=== PATIENT | female | born 1980 | race Caucasian/White ===

== ENCOUNTER 2018-01-03 03:49 | Emergency (ER) | payer OTHER, SELFPAY ==
[2018-01-03 04:05] VITALS: BP 100/50; PULSE 82; RESP 16; TEMP 37.1; O2SAT 98
[2018-01-03 04:28] LABS: Bacteria Urine Many (>30); RBC Urine 30-100/HPF (0-5/HPF); Squamous Epithelial Cell Urine 0-1 /HPF; WBC Urine 30-100/HPF (0-5/HPF)
[2018-01-03 04:29] LABS: Culture Indicated Urine Specimen Cultured
--- NOTE | 2018-01-03 04:56 | ED.FEMALEGU ---
HPI - Female Genitourinary General Chief complaint: Urogenital-Female Stated complaint: Thinks she has a UTI Source: patient and RN notes reviewed Mode of arrival: ambulatory Limitations: no limitations History of Present Illness HPI Narrative: Patient is a 37-year-old female who presents with painful frequent urination. It she says started last evening around 7:00 p.m. is in she woke up this morning around 3:00 a.m with fever and suprapubic pain. No flank pain. She denies any blood in her urine or vaginal discharge. MD Complaint: dysuria and UTI Onset (ago): hour(s) Severity: moderate Related Data Previous Rx's Medication Instructions Recorded sulfamethoxazole-trimethoprim 1 tab PO BID 5 Days #10 tab 01/03/18 [Bactrim DS] Allergies Allergy/AdvReac Type Severity Reaction Status Date / Time No Known Drug Allergies Allergy Verified 01/03/18 04:17 Review of Systems Review of Systems GENERAL: Denies chills,fever HEENT: Denies throat pain RESPIRATORY: Denies dyspnea, cough, wheezing CARDIOVASCULAR: Denies chest pain, palpitations GASTROINTESTINAL: Denies nausea, vomiting MUSCULOSKELETAL: Denies extremity pain, injury SKIN: No rash, no laceration, no pruritus NEUROLOGIC: Denies weakness, dizziness, headache, numbness 8 point review of systems is negative except for those stated above and HPI Genitourinary Reports system reviewed and no additional complaints, except as docu PMFSH Past Medical History Attestation statement: The following information was validated with the patient. Medical history: Reports no medical history Family history: Reports non-contributory Exam Narrative Exam Narrative: GENERAL: Well-appearing, well-nourished and in no acute distress. HEENT: Head atraumatic,EOMI CARDIOVASCULAR: Regular rate and rhythm without murmurs, rubs or gallops. RESPIRATORY: Breath sounds equal bilaterally, no wheezes rales or rhonchi. ABDOMEN: Soft, mild suprapubic tenderness no guarding no rebound : No CVA tenderness EXTREMITIES: Normal range of motion, no clubbing or edema. Neurovascularly intact NEUROLOGICAL: Alert and oriented x4.Normal gait and speech. SKIN: Warm, dry, no laceration, no petechiae, no rashes or lesions. MDM - Female Genitourinary Lab Data Attestation: I reviewed the patient's lab results. Lab Results 01/03/18 Range/Units 04:10 Urine RBC 30-100/hpf H (0-5/HPF) Urine WBC 30-100/hpf H (0-5/HPF) Ur Squamous Epith Cells 0-1 /hpf Urine Bacteria Many (>30) H (None) Ur Culture Indicated? Specimen cultured Micro UA Comment Not Reportable Discharge Plan Departure Patient Disposition: Home, Self-Care Clinical Impression: Urinary tract infection Instructions: DI for Urinary Tract Infection (UTI) Activity Restrictions/Additional Instructions: *You have been diagnosed with bladder infection *What to do: Increase fluid intake, fever control *Take medications as directed -Bactrim 1 tablet twice a day for 5 days -apply radium 1 tablet 3 times a day if needed for burning sensation *Follow up with your primary care provider in 2-3 days *Return to ER if you should have any new, worsening or concerning symptoms Prescriptions: New sulfamethoxazole-trimethoprim [Bactrim DS] 800-160 mg tablet 1 tab PO BID 5 Days Qty: 10 RF: 0 Referrals: [facility] [Outside]
[2018-01-03] MEDS: PHENAZOPYRIDINE 100 MG PREPACK 1 BOTTLE MISC (05:41)
[2018-01-03] MEDS: SULFA/TRIMETH 800/160 PREPACK 1 BOTTLE MISC (05:45)
[2018-01-03 05:57] VITALS: BP 106/50; PULSE 59; RESP 16; O2SAT 97
== END 2018-01-03 05:58 | disposition home or self-care (01) ==
PROVIDERS: Emergency Provider Emergency Medicine
DX: N39.0 Urinary tract infection, site not specified (principal)
CPT/HCPCS: 81003; 81015; 81025; 87086; 99282

== ENCOUNTER 2018-01-07 13:01 | Emergency (ER) | payer OTHER, SELFPAY ==
--- NOTE | 2018-01-07 13:04 | DI.RAD.S_ITS ---
PROCEDURE: XR HAND LT MIN 3V INDICATIONS: injury TECHNIQUE: 3 views of the hand(s) acquired. COMPARISON: None. FINDINGS: Bones: No fractures or dislocations. Carpal bones are normally aligned. No suspicious bony lesions. Soft tissues: No suspicious soft tissue calcifications. IMPRESSION: No acute fractures or dislocations. Dictated by: Robert Smith M.D. on 01/07/2018 at 13:45 Approved by: Robert Smith M.D. on 01/07/2018 at 13:46
--- NOTE | 2018-01-07 13:17 | ED.UPPEXIN ---
HPI - Extremity Injury (Upper) General Chief Complaint: Extremity Injury, Upper Stated Complaint: BROKEN [place]NUCKLE Time Seen by Provider: 01/07/18 13:26 Source: patient History of Present Illness HPI narrative: 37-year-old female here for complaint of pain into her left hand. Patient states that she was lifting up a cushion on a arm chair when she accidentally hit the metal frame of the chair with her left hand. She reports swelling and bruising over her knuckle of the ring finger. She reports increased pain with motion of the fingers. She denies any other injuries or concerns. She states that this happened shortly prior to arrival. Related Data Previous Rx's Medication Instructions Recorded sulfamethoxazole-trimethoprim 1 tab PO BID 5 Days #10 tab 01/03/18 [Bactrim DS] Allergies Allergy/AdvReac Type Severity Reaction Status Date / Time No Known Drug Allergies Allergy Verified 01/07/18 13:05 Review of Systems Constitutional Denies chills, Denies fever(s), Denies lethargy and Denies weakness Eyes Denies change in vision, Denies eye discharge, Denies irritation and Denies loss of vision Gastrointestinal Gastrointestinal: Denies abdominal pain, Denies change in bowel habits, Denies diarrhea, Denies nausea and Denies vomiting Genitourinary Denies hematuria, Denies flank pain, Denies urinary incontinence and Denies urinary urgency Musculoskeletal Comments: Left hand pain Integumentary/Breasts Denies pruritus, Denies erythema, Denies rash and Denies wounds Neurologic Denies loss of vision and Denies weakness [facility] Medical History delivery delivered (Acute) Social History Smoking Status: Never smoker Exam Const General: cooperative and well developed Nutritional Appearance: well nourished Orientation: alert, awake, oriented x3 and not confused Eyes Pupils: PERRL EOM: EOM intact bilaterally Resp Effort & Inspection: normal respiratory effort, able to speak in complete sentences, no respiratory distress and no use of accessory muscles Auscultation: clear to auscultation bilaterally, no rales, no rhonchi and no wheezes Cardio Rate: regular rate Rhythm: regular rhythm Heart Sounds: no click, no gallops, no murmurs and no rubs Skin General: no rashes or lesions noted, No jaundice and No petechiae Extrem Other: Left hand with slight swelling and ecchymosis over the MCP joint of the ring finger. Full range of motion. Distal sensation is intact. Distal cap refill less than 2 sec. MDM - Extremity Injury (Upper) MDM Narrative Medical decision making narrative: X-ray of the left hand was obtained was negative for any acute fractures. Signs and symptoms presents contusion left hand. [id number] Tylenol or Motrin as needed for any discomfort. Ice and elevation to help with any swelling. Follow up with primary care provider. Repeat x-rays and 7-10 days if still having pain due to the left hand to rule out occult fracture. Return emergency room for any worsening symptoms. Discharge Plan Departure Patient Disposition: Home, Self-Care Clinical Impression: Contusion of hand, left Discharge Date/Time: 01/07/18 15:25 Interventions: ED Discharge Assessment Last Done: 01/07/18 15:25 Instructions: DI for Contusion Activity Restrictions/Additional Instructions: X-ray of the left hand was obtained was negative for any acute fractures. Signs and symptoms presents contusion left hand. [id number] Tylenol or Motrin as needed for any discomfort. Ice and elevation to help with any swelling. Follow up with primary care provider. Repeat x-rays and 7-10 days if still having pain due to the left hand to rule out occult fracture. Return emergency room for any worsening symptoms. Prescriptions: No Action sulfamethoxazole-trimethoprim [Bactrim DS] 800-160 mg tablet 1 tab PO BID 5 Days Qty: 10 RF: 0 Referrals: [facility] [Provider Group]
[2018-01-07 13:30] VITALS: BP 100/64; PULSE 62; RESP 16; TEMP 36.7; O2SAT 99
[2018-01-07 15:24] VITALS: BP 103/68; PULSE 65; RESP 16; O2SAT 100
== END 2018-01-07 15:25 | disposition home or self-care (01) ==
PROVIDERS: Emergency Provider Nurse Practitioner Family
DX: S60.222A Contusion of left hand, initial encounter (principal); W22.8XXA Striking against or struck by other objects, initial encounter
CPT/HCPCS: 73130; 99282; 99283